=== PATIENT | male | born 1960 | race Caucasian/White ===

== ENCOUNTER → 2019-01-05 | Outpatient (CLI) | payer OTHER | LOC: M.ULTRA 07:29 | DX: I65.23 Occlusion and stenosis of bilateral carotid arteries (principal); I10 Essential (primary) hypertension; E78.2 Mixed hyperlipidemia; Z82.3 Family history of stroke; Z82.49 Family history of ischemic heart disease and other diseases of the circulatory system ==

== ENCOUNTER → 2020-01-17 | Outpatient (CLI) | payer OTHER | LOC: M.ULTRA 07:50 | DX: N28.9 Disorder of kidney and ureter, unspecified (principal) ==